=== PATIENT | female | born 1945 | race Caucasian/White ===

== ENCOUNTER 2020-07-24 16:33 | Inpatient (IN) | payer MEDICARE, OTHER ==
[~2020-07-24] VITALS: Ht 157.5 cm; Wt 44.9 kg
[2020-07-24 18:55] LABS: BUN/CREATININE RATIO 33 (0-10)
[2020-07-24 19:16] LABS: HEMOGLOBIN 12.4 gm/dl (12.3-15.3); RED BLOOD COUNT 4.71 M/UL (4.00-5.10)
[2020-07-24] MEDS ORDERED: FOLIC ACID 1 MG1 MG PO (21:41)
[2020-07-24] MEDS ORDERED: VIBRAMYCIN100 MG PO (21:42)
[2020-07-24] MEDS ORDERED: PREDNISONE 10 M10 MG PO (21:43)
[2020-07-24] MEDS ORDERED: ELIQUIS 5 MG TAB5 MG PO (21:43)
[2020-07-24] MEDS ORDERED: PROTONIX 40 MG40 M1 PO (21:44)
[2020-07-24] MEDS ORDERED: SYNTHROID50 MCG PO (21:44)
[2020-07-24] MEDS ORDERED: ESTRACE 1 MG TAB1 MG PO (21:44)
[2020-07-24] MEDS ORDERED: ASPIRIN CHEWABL81 MG PO (21:45)
[2020-07-25 06:11] LABS: HEMOGLOBIN 10.3 gm/dl (12.3-15.3); RED BLOOD COUNT 3.87 M/UL (4.00-5.10); WHITE BLOOD COUNT 10.4 K/UL (4.5-11.0)
[2020-07-25 06:48] LABS: BUN/CREATININE RATIO 31 (0-10)
[2020-07-26 06:54] LABS: BUN/CREATININE RATIO 30 (0-10)
[2020-07-27 06:38] LABS: BUN/CREATININE RATIO 42 (0-10)
[2020-07-28] MEDS ORDERED: IPRAT-ALBUT 0.5-3 ML NEB (09:44)
[2020-07-28] MEDS ORDERED: PREDNISONE10 MG PO (09:54)
[2020-07-28] MEDS ORDERED: ROXANOL SOLN20 MG/ML PO (12:07)
[2020-07-28] MEDS ORDERED: ATIVAN0.5 MG PO (12:07)
[2020-07-29 00:11] LABS: RHEUMATOID FACTOR (RF) 36.4 IU/mL (0.0-13.9)
== END 2020-07-28 17:18 | disposition home or self-care (01) | DRG 196 ==
LOC: ER1 16:33 → CDU 20:25 → M/S 20:25
PROVIDERS: Internal Medicine; Internal Medicine Pulmonary Disease; Physician Assistant; ADMIT Family Medicine
DX: J84.10 Pulmonary fibrosis, unspecified (principal); J96.21 Acute and chronic respiratory failure with hypoxia; M06.9 Rheumatoid arthritis, unspecified; Z20.822 Contact with and (suspected) exposure to COVID-19; Z86.718 Personal history of other venous thrombosis and embolism; Z79.82 Long term (current) use of aspirin; Z79.890 Hormone replacement therapy; Z79.899 Other long term (current) drug therapy; Z90.49 Acquired absence of other specified parts of digestive tract; Z90.710 Acquired absence of both cervix and uterus; Z88.5 Allergy status to narcotic agent
CPT/HCPCS: 0240U; 36415; 36600; 71045; 80048; 80053; 81001; 82550; 82553; 82803; 83605; 83874; 83880; 84484; 85025; 85027; 85610; 85730; 86200; 86431; 87040; 87086; 93005; 94640; 94664; 94760; 96365; 96366; 96368; 96375; 99285; J1100; J2270; J2543; J2920; J2930; J3370; J7030; Q9967